=== PATIENT | male | born 1995 | race Caucasian/White ===

== ENCOUNTER 2016-09-10 19:28 | Emergency (ER) | payer BC, OTHER ==
[2016-09-10 20:04] VITALS: TEMP 97.2; O2SAT 100
--- NOTE | 2016-09-10 20:22 | ED.PDOC ---
History of Present Illness - General Chief Complaint: ENT Problem Stated Complaint: nose bleed past week Time Seen by Provider: 09/10/16 20:15 Source: patient, family Exam Limitations: no limitations Additional Information: DAILY NOSE BLEEDS PAST WEEK. HAD ONE TODAY BUT IT STOPPED AT HOME BY APPLYING PRESSURE. ALWAYS RIGHT SIDE. - History of Present Illness Severity: mild Worsening Factors: movement Associated Symptoms: denies symptoms Allergies/Adverse Reactions: Allergies NO KNOWN ALLERGY Allergy (Verified 09/10/16 20:03) Home Medications: Ambulatory Orders Cynterra 09/10/16 Divalproex Sodium [Depakote] 125 mg PO 09/10/16 Melatonin 5 mg PO 09/10/16 Volcan 09/10/16 Review of Systems - Review of Systems Constitutional: States: no symptoms reported EENTM: Denies: ear pain, throat pain, mouth pain Respiratory: States: no symptoms reported Cardiology: States: no symptoms reported Gastrointestinal/Abdominal: States: no symptoms reported Genitourinary: States: no symptoms reported Musculoskeletal: States: no symptoms reported Skin: States: no symptoms reported Neurological: States: no symptoms reported Endocrine: States: no symptoms reported Hematologic/Lymphatic: States: no symptoms reported All other Systems: Reviewed and Negative Past Medical History (General) - Patient Medical History Hx Seizures: Yes - Vaccination History Hx Influenza Vaccination: Yes Family Medical History - Family History Father Family History: Unknown Physical Exam - Physical Exam General Appearance: Comfortable, No apparent distress Eye Exam: bilateral normal Ear Exam: bilateral ear: TM normal Nasal Exam: other - BL KESSELBACH'S PLEXUS ALONG SEPTUM SHOW RED VENULES BUT NO ACTIVE HEMORRHAGE. Throat Exam: normal mouth inspection, pharynx normal Neck: non-tender, full range of motion Cardiovascular/Respiratory: regular rate, rhythm, no M/R/G Abdominal Exam: non-tender, no organomegaly Neurologic: supervisor lens generating II-XII nml as tested, alert Skin Exam: normal color Progress - Progress Progress: 09/10/16 21:10 NO ACTIVE EPISTAXIS THUS NO RHINO ROCKET NEEDED. NO SILVER NITRATE NEEDED. I APPLIED A LAYER OF VASELINE WITH QTIP. Departure - Departure Clinical Impression: Anterior epistaxis Disposition: Discharge to Home or Self Care Condition: Good Departure Forms: ED Discharge - Pt. Copy, Patient Portal Self Enrollment Instructions: What to Do When Your Child Has a Nosebleed Diet: resume usual diet Home Medications: Ambulatory Orders Cynterra 09/10/16 Divalproex Sodium [Depakote] 125 mg PO 09/10/16 Melatonin 5 mg PO 09/10/16 Volcan 09/10/16 Additional Instructions: Please apply a thin layer of vaseline petroleum jelly to the septum of the nose daily. Use a humidifier/vaporizer in his bedroom at night and during the day. Please follow-up with your regular doctor or return to the ER if these prevention measures don't work.
[2016-09-10 21:25] VITALS: BP 136/72
== END 2016-09-10 21:25 | disposition home or self-care (01) ==
LOC: ER 19:28
DX: R04.0 Epistaxis (principal); G40.909 Epilepsy, unspecified, not intractable, without status epilepticus; Z79.899 Other long term (current) drug therapy

== ENCOUNTER 2018-10-27 23:04 | Emergency (ER) | payer BC, OTHER ==
--- NOTE | 2018-10-27 23:39 | ED.PDOC ---
History of Present Illness - General Chief Complaint: Abdominal Pain Stated Complaint: fever, RLQ pain Time Seen by Provider: 10/27/18 23:29 Information Source: patient Exam Limitations: no limitations - History of Present Illness Initial Comments: Junior Jerome 23 y/o male stated he woke up tonight with sharp RLQ pain and fever.No n/v/d ,no hematuria or dysuria.Has history of seizure disorder on depakote,strattera,focalin. Abdominal Pain Onset Location: RLQ Pain Radiation: no radiation Quality: moderate, steady Timing/Duration: 4-6 hours Improving Factors: nothing Worsening Factors: nothing Associated Symptoms: denies symptoms, other - see hpi Review of Systems - Review of Systems Constitutional: States: see HPI, fever EENTM: States: no symptoms reported Respiratory: States: no symptoms reported Cardiology: States: no symptoms reported Gastrointestinal/Abdominal: States: see HPI Musculoskeletal: States: no symptoms reported Skin: States: no symptoms reported Neurological: States: seizure - chronic Endocrine: States: no symptoms reported Past Medical History (General) - Patient Medical History Hx Seizures: Yes Hx Diabetes: No Surgical History: no surgical history - Vaccination History Hx Influenza Vaccination: Yes - Triage Comment ED Triage Comment: RLQ abd pain with fever Family Medical History - Family History Father Family History: Unknown Hx Family;Other: ADOPTED Physical Exam - Physical Exam General Appearance: Alert, Comfortable, No apparent distress Eyes, Ears, Nose, Throat Exam: normal ENT inspection, TMs normal, pharynx normal Neck: supple, normal inspection Respiratory: lungs clear, normal breath sounds, no respiratory distress Cardiovascular/Chest: normal peripheral pulses, no murmur, tachycardia Peripheral Pulses: No deficit Gastrointestinal/Abdominal: soft, tenderness - RLQ no peritoneal signs Extremity: no pedal edema Neurologic: alert, oriented x 3 Skin Exam: normal color, warm/dry Progress - Progress Progress: 10/28/18 01:08 Vital Signs - 8 hr 10/27/18 10/28/18 23:27 00:04 Temperature 102.0 F H Pulse Rate [ 118 H 108 H Left] Respiratory 16 Rate Blood Pressure 118/63 114/68 [Right Arm] O2 Sat by Pulse 100 99 Oximetry 10/28/18 01:37 Dad requested Tamiflu for prophylaxis Rx written - Results/Orders Results/Orders: 10/27/18 23:41 URINALYSIS Stat 10/27/18 23:42 IV Care:Saline Lock per Protoc QSHIFT 10/27/18 23:45 STREP A SCREEN CULTURE Stat Laboratory Results - last 24 hr 10/27/18 10/27/18 10/27/18 23:41 23:41 23:41 WBC 8.5 RBC 5.57 Hgb 15.6 Hct 47.3 MCV 84.9 MCH 28.0 MCHC 33.0 RDW 14.2 Plt Count 197 MPV 8.3 Absolute Neuts (auto) 6.00 Absolute Lymphs (auto) 0.90 L Absolute Monos (auto) 1.50 H Absolute Eos (auto) 0.00 Absolute Basos (auto) 0.00 Neutrophils % 71.0 Lymphocytes % 10.6 L Monocytes % 18.0 H Eosinophils % 0.0 L Basophils % 0.4 Sodium 135 Potassium 3.6 Chloride 101 Carbon Dioxide 26 Anion Gap 11.6 L BUN 13 Creatinine 0.72 BUN/Creatinine Ratio 18.1 Random Glucose 103 Serum Osmolality 270.5 L Lactic Acid 1.1 Calcium 8.6 Total Bilirubin 0.5 AST 21 ALT 29 Alkaline Phosphatase 92 Serum Total Protein 8.3 H Albumin 4.0 Globulin 4.3 H Albumin/Globulin Ratio 0.9 L Valproic Acid 40.4 L Group A Strep Rapid 10/27/18 23:45 WBC RBC Hgb Hct MCV MCH MCHC RDW Plt Count MPV Absolute Neuts (auto) Absolute Lymphs (auto) Absolute Monos (auto) Absolute Eos (auto) Absolute Basos (auto) Neutrophils % Lymphocytes % Monocytes % Eosinophils % Basophils % Sodium Potassium Chloride Carbon Dioxide Anion Gap BUN Creatinine BUN/Creatinine Ratio Random Glucose Serum Osmolality Lactic Acid Calcium Total Bilirubin AST ALT Alkaline Phosphatase Serum Total Protein Albumin Globulin Albumin/Globulin Ratio Valproic Acid Group A Strep Rapid Negative 10/27/18 23:42 IV Care:Saline Lock per Protoc QSHIFT 10/27/18 23:45 STREP A SCREEN CULTURE Stat Laboratory Results - last 24 hr 10/27/18 10/27/18 10/27/18 23:41 23:41 23:41 WBC 8.5 RBC 5.57 Hgb 15.6 Hct 47.3 MCV 84.9 MCH 28.0 MCHC 33.0 RDW 14.2 Plt Count 197 MPV 8.3 Absolute Neuts (auto) 6.00 Absolute Lymphs (auto) 0.90 L Absolute Monos (auto) 1.50 H Absolute Eos (auto) 0.00 Absolute Basos (auto) 0.00 Neutrophils % 71.0 Lymphocytes % 10.6 L Monocytes % 18.0 H Eosinophils % 0.0 L Basophils % 0.4 Sodium 135 Potassium 3.6 Chloride 101 Carbon Dioxide 26 Anion Gap 11.6 L BUN 13 Creatinine 0.72 BUN/Creatinine Ratio 18.1 Random Glucose 103 Serum Osmolality 270.5 L Lactic Acid 1.1 Calcium 8.6 Total Bilirubin 0.5 AST 21 ALT 29 Alkaline Phosphatase 92 Serum Total Protein 8.3 H Albumin 4.0 Globulin 4.3 H Albumin/Globulin Ratio 0.9 L Urine Color Urine Appearance Urine pH Ur Specific [place] Urine Protein Urine Glucose (UA) Urine Ketones Urine Blood Urine Nitrite Urine Bilirubin Urine Urobilinogen Ur Leukocyte Esterase Urine RBC Urine WBC Ur Epithelial Cells Urine Bacteria Urine Mucus Valproic Acid 40.4 L Group A Strep Rapid 10/27/18 10/28/18 23:45 01:09 WBC RBC Hgb Hct MCV MCH MCHC RDW Plt Count MPV Absolute Neuts (auto) Absolute Lymphs (auto) Absolute Monos (auto) Absolute Eos (auto) Absolute Basos (auto) Neutrophils % Lymphocytes % Monocytes % Eosinophils % Basophils % Sodium Potassium Chloride Carbon Dioxide Anion Gap BUN Creatinine BUN/Creatinine Ratio Random Glucose Serum Osmolality Lactic Acid Calcium Total Bilirubin AST ALT Alkaline Phosphatase Serum Total Protein Albumin Globulin Albumin/Globulin Ratio Urine Color Yellow Urine Appearance Clear Urine pH 6.5 Ur Specific [place] 1.025 Urine Protein 30 Urine Glucose (UA) Negative Urine Ketones 15 H Urine Blood Negative Urine Nitrite Negative Urine Bilirubin Negative Urine Urobilinogen 1.0 Ur Leukocyte Esterase Negative Urine RBC 0-1 Urine WBC 1-3 Ur Epithelial Cells 0 Urine Bacteria 0 Urine Mucus Moderate Valproic Acid Group A Strep Rapid Negative Discuss all test result with patient dad - EKG/XRAY/CT CT Ordered: Yes - abd/P-no acute intraabdominal abnormalties Departure - Departure Clinical Impression: Influenza A Abdominal pain Qualifiers: Abdominal location: right lower quadrant Qualified Code(s): R10.31 - Right lower quadrant pain Time of Disposition: :28 Disposition: Discharge to Home or Self Care Condition: Fair Departure Forms: ED Discharge - Pt. Copy, Patient Portal Self Enrollment Instructions: Flu, Adult (DC) Referrals: Po Wu MD [Primary Care Provider] - 1-2 Weeks Prescriptions: Oseltamivir Capsule [Tamiflu] 75 mg PO BID 5 Days #10 capsule Home Medications: Ambulatory Orders Cynterra 09/10/16 Divalproex Sodium [Depakote] 125 mg PO 09/10/16 Melatonin 5 mg PO 09/10/16 Volcan 09/10/16 Oseltamivir Capsule [Tamiflu] 75 mg PO BID 5 Days #10 capsule 10/28/18 Additional Instructions: Continue with all home medications;May take [id number] tablets by mouth every 6 hours for pain /fever
[2018-10-27] MEDS ORDERED: LACTATED RINGERS 1,000 ML IVS ONE (23:43)
--- NOTE | 2018-10-28 01:04 | CT ---
CT ABDOMEN PELVIS WITHOUT IV CONTRAST Exam date: 10/28/2018 12:25 AM CDT Comparison: CT abdomen pelvis January 16, 2012 Indication: Abdominal pain Technique: Multiple helical axial images were obtained through the abdomen and pelvis without intravenous contrast. Sagittal and coronal reformatted images are reviewed as well. All CT scans at this facility use dose modulation, iterative reconstruction, and/or weight-based dosing when appropriate to reduce radiation dose to as low as reasonably achievable. Findings: Lung bases: Unremarkable. Liver: Homogenous attenuation is demonstrated. Gallbladder/biliary: Gallbladder appears unremarkable. No calcified gallstones. No evidence of biliary ductal dilatation. Pancreas: Unremarkable. Spleen: Unremarkable. Adrenals: Unremarkable. Kidneys and ureters: No evidence of renal or ureteral stones. No hydronephrosis. Bladder: Unremarkable. Pelvic organs: Unremarkable. Bowel: No evidence of bowel obstruction. No bowel wall thickening. Appendix appears unremarkable. Peritoneum: No free air. No significant free fluid. Lymph nodes: Unremarkable. Vasculature: Unremarkable. Soft tissues: Unremarkable. Bones: There is mild dextrocurvature of the midthoracic spine. Impression: No evidence for an acute process within the abdomen or pelvis. Electronically signed by: Mathew Lam MD 10/28/2018 1:01 AM CDT
[2018-10-28] MEDS ORDERED: OSELTAMIVIR 75 MG CAP PO ONE (01:09)
[2018-10-28 01:14] VITALS: O2SAT 99
[2018-10-28] MEDS ORDERED: ACETAMINOPHEN 325 MG TAB PO ONE (01:30)
[2018-10-28 02:32] VITALS: BP 125/73; TEMP 101.2
== END 2018-10-28 02:33 | disposition home or self-care (01) ==
LOC: ER 23:04
DX: J10.1 Influenza due to other identified influenza virus with other respiratory manifestations (principal); R10.31 Right lower quadrant pain; G40.909 Epilepsy, unspecified, not intractable, without status epilepticus; Z79.899 Other long term (current) drug therapy
CPT/HCPCS: 36415; 74176; 80053; 80164; 81001; 83605; 85025; 87070; 87502; 87880; J7120

== ENCOUNTER 2019-06-07 17:42 | Inpatient (IN) | payer BC, OTHER ==
[2019-06-07] MEDS ORDERED: ONDANSETRON INJ 4 MG/2 ML VIAL IV ONE (17:58)
[2019-06-07] MEDS ORDERED: KETOROLAC TROMETHAMINE INJ 30 MG/ML VIAL IV ONE (17:58)
[2019-06-07] MEDS ORDERED: SODIUM CHLORIDE 0.9% 1000ML 1,000 ML IVS ONE ×2 (17:58→19:18)
[2019-06-07] MEDS ORDERED: ACETAMINOPHEN 500 MG TAB PO ONE (17:58)
--- NOTE | 2019-06-07 18:09 | ED.PDOC ---
History of Present Illness - General Chief Complaint: Abdominal Pain Stated Complaint: L sided abd pain, N/V Time Seen by Provider: 06/07/19 17:45 - History of Present Illness Initial Comments: Pt is a 24 y.o. M w/ pmh of seizures who presents from home c/o LLQ pain. Mom reports that his symptoms began last night. Pain is sharp in nature and radiates to his L flank. It has been constant and worsening since last night. Associated with nausea and vomiting as well as fevers and chills. He has never had this pain before. denies h/o renal stones or diverticulitis. No diarrhea or sick contacts. Review of Systems - Review of Systems Constitutional: States: chills, fever, malaise EENTM: States: no symptoms reported Respiratory: States: no symptoms reported Cardiology: States: no symptoms reported Gastrointestinal/Abdominal: States: abdominal pain, vomiting Genitourinary: Denies: dysuria Musculoskeletal: States: no symptoms reported Skin: States: no symptoms reported Neurological: States: no symptoms reported Endocrine: States: no symptoms reported Hematologic/Lymphatic: States: no symptoms reported All other Systems: Reviewed and Negative Past Medical History (General) - Patient Medical History Hx Seizures: Yes Hx Stroke: No Hx of COPD: No Hx Cardiac Disorders: No Hx Hypertension: No Hx Diabetes: No Hx Cancer: No Surgical History: no surgical history - Vaccination History Hx Tetanus, Diphtheria Vaccination: Yes Hx Influenza Vaccination: No Hx Pneumococcal Vaccination: No Immunizations Up to Date: Yes - Social History Hx Tobacco Use: No Hx Alcohol Use: No Hx Substance Use: No Hx Substance Use Treatment: No Hx Depression: No - Female History Patient is a Female of Child Bearing Age (10 -59 yrs old): No Patient : No Family Medical History - Family History Father Family History: Unknown Hx Family;Other: ADOPTED Physical Exam - Physical Exam General Appearance: Alert, Ill Appearing Eyes, Ears, Nose, Throat Exam: PERRL/EOMI, normal ENT inspection Neck: full range of motion, supple Respiratory: lungs clear, normal breath sounds Cardiovascular/Chest: no edema, tachycardia Peripheral Pulses: No deficit Gastrointestinal/Abdominal: other - LLQ tenderness and guarding Male Genitalia: normal genitalia, other - circumsized Back Exam: normal inspection, no CVA tenderness Extremity: normal range of motion, non-tender Neurologic: no motor/sensory deficits, alert, normal mood/affect Skin Exam: normal color, warm/dry Progress - Progress Progress: 06/07/19 18:12 MDM Pt w/ h/o seizures and slight intellectual disability presenting with LLQ pain and fever. Septic appearing with tachycardia/borderline BP. Plan: labs, CT, treat symptoms, reassess. Diff dx: sepsis, diverticulitis, renal stone 06/07/19 20:37 Labs with notable leukocytosis and bandemia. CT a/p w/o any acute findings. Unclear etiology of patient's symptoms. UA still pending. Will admit for sepsis and treat with antibiotics. 06/07/19 20:42 Spoke with Raquel Valencia, hospitalist, who accepts patient for admission. - EKG/XRAY/CT CT Ordered: Yes - No acute findings on CT a/p Departure - Departure Clinical Impression: Left lower quadrant pain Sepsis Qualifiers: Sepsis type: sepsis due to unspecified organism Sepsis acute organ dysfunction status: without acute organ dysfunction Qualified Code(s): A41.9 - Sepsis, unspecified organism Disposition: Admit Patient Condition: Good Departure Forms: ED Discharge - Pt. Copy, Patient Portal Self Enrollment Instructions: DI for Abdominal Pain-Adult Referrals: Po Wu MD [Primary Care Provider] - 1-2 Weeks Home Medications: Ambulatory Orders Mihcaela 09/10/16 Divalproex Sodium [Depakote] 125 mg PO 09/10/16 Melatonin 5 mg PO 09/10/16 Volcan 09/10/16 Oseltamivir Capsule [Tamiflu] 75 mg PO BID 5 Days #10 capsule 10/28/18
[2019-06-07] MEDS ORDERED: MORPHINE SULFATE INJ 10 MG/ML VIAL IV ONE (18:44)
--- NOTE | 2019-06-07 19:36 | CT ---
CT ABDOMEN PELVIS WITH IV CONTRAST Exam date: June 07, 2019 Comparison: CT abdomen pelvis October 28, 2018 Indication: Left lower quadrant pain Technique: Multiple helical axial images were obtained through the abdomen and pelvis using intravenous contrast. Coronal and sagittal reformatted images were obtained. All CT scans at this facility use dose modulation, iterative reconstruction, and/or weight-based dosing when appropriate to reduce radiation dose to as low as reasonably achievable. Findings: Lung bases: [Appear unremarkable]. Liver: [Homogenous attenuation is noted.] Gallbladder/biliary: [Appears unremarkable] Pancreas: [Unremarkable. No evidence of ductal enlargement.] Spleen: Appears unremarkable. No splenomegaly. Adrenals: Unremarkable. Kidneys and ureters: [No evidence of hydronephrosis. Normal enhancement.] Bladder: Unremarkable. Pelvic organs: Unremarkable. Bowel: [No evidence of bowel obstruction. No bowel wall thickening.] Appendix appears unremarkable. Vasculature: Unremarkable. Peritoneum: No free air. No significant free fluid. Lymph nodes: Unremarkable. Soft tissues: Unremarkable. Bones: Mild thoracolumbar scoliosis is noted. Impression: No evidence for an acute process within the abdomen or pelvis. Electronically signed by: Mathew Lam MD 06/07/2019 7:34 PM CDT
[2019-06-07] MEDS ORDERED: cefTRIAXone SODIUM 2 GM in SODIUM CHL 0.9% 100ML MINI-BAG 100 ML IVPB ONE (19:48)
[2019-06-07] MEDS ORDERED: metroNIDAZOLE IV PREMIX 500MG 500 MG in PREMIX BAG 1 BAG IVPB ONE (19:48)
[2019-06-07] MEDS ORDERED: metroNIDAZOLE IV PREMIX 500MG 100 ML IVPB ONE (19:52)
--- NOTE | 2019-06-07 20:35 | RAD ---
EXAM: Chest,1 View CLINICAL INDICATION: Cough COMPARISON: There is no previous study for comparison. FINDINGS: A single view of the chest was obtained. The heart size is normal. The pulmonary vascularity is unremarkable. The lungs are clear. There is no consolidation, infiltrate, pleural effusion, or pneumothorax. IMPRESSION: No evidence of active pulmonary disease. Electronically signed by: Sammy Oneill MD 06/07/2019 8:34 PM CDT
--- NOTE | 2019-06-07 21:17 | HP ---
SUPERVISING PHYSICIAN: Killian Gordon MD CHIEF COMPLAINT: Left lower quadrant abdominal pain. HISTORY OF PRESENT ILLNESS: This is a 24 year-old male patient who has a past medical history of seizures, lives at home, who complains of left lower quadrant abdominal pain. It had been going on since Sunday night. The pain was sharp in nature, it radiates to his flank. He has also had fever and chills. He came to the Emergency Room and his initial vital signs were a temperature of 101.6 with a heart rate of 128, blood pressure 101/81, respiratory rate 20, oxygen saturation 96% on room air. Laboratory was completed and showed a white count of 25,000 with a stable hemoglobin of 15.3 and hematocrit of 46.1. He had a left shift on his differential and had 16 bands. Electrolytes were basically within normal limits with the exception of his chloride which slightly low at 97. Total bilirubin was 1.2, serum osmolality 272.7, lactic acid 1.1. Urinalysis was unremarkable with the exception of 40 urine ketones and a small amount of urine bilirubin. Blood cultures were obtained. Chest x-ray was done and showed no acute cardiopulmonary processes. CT of the abdomen and pelvis showed no evidence for an acute process within the abdomen or pelvis. He was given fluids and started on Rocephin and Flagyl and I was called for hospital admission. PAST MEDICAL HISTORY: 1. Seizures. 2. 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 3. Mild intellectual disability. PAST SURGICAL HISTORY: None. CURRENT MEDICATIONS: 1. Strattera. 2. Focalin. 3. Depakote. 4. Melatonin. ALLERGIES: No known drug allergies. FAMILY HISTORY: Unknown, he is adopted. SOCIAL HISTORY: He lives in [place] with his parents. There is no history of ETOH, tobacco or illicit drug use. REVIEW OF SYSTEMS: GENERAL: Positive for chills, fever and malaise, negative for weight changes. HEENT: Negative for sinus symptoms, ear pain, vision changes, sore throat. RESPIRATORY: Negative for coughing, wheezing, shortness of breath CARDIAC: Negative for chest pain, palpitations, tachycardia. GI: Positive for left lower quadrant abdominal pain as well as nausea and vomiting. No diarrhea or constipation. GENITOURINARY: Negative for hematuria, dysuria, polyuria. MUSCULOSKELETAL: Positive for general aches and pains.. SKIN: Negative for lesions or rashes. NEUROLOGICAL: Negative for headaches, and recent seizures or dizziness. PHYSICAL EXAMINATION: VITAL SIGNS: Temperature 98.9, heart rate 106, blood pressure 114/78, respiratory rate 20, oxygen saturation 97% on room air. GENERAL: This is a 24 year-old male patient who is rather ill-appearing. HEENT: Normocephalic and atraumatic. Pupils are equal and reactive. Oropharynx is clear. NECK: Supple without mass. CHEST: Essentially clear to auscultation bilaterally. There is equal rise and fall of the chest with inspiration and expiration. CARDIOVASCULAR: Regular rate and rhythm. At times, he is tachycardic. ABDOMEN: EXTREMITIES: No cyanosis, clubbing, or edema. NEUROLOGIC: He is awake and alert and is feverish and slightly diaphoretic. Labs and films are as per history of present illness. ASSESSMENT: 1. Systemic inflammatory response system of unknown source of infection. On admission heart rate was 128, temperature 101.8, WBCs 25,000 and bands of 16%. 2. Left lower quadrant abdominal pain with nausea and vomiting and no acute findings on CT. 3. History of seizure disorder on antiseizure medication. 4. 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 5. Mild intellectual disability. PLAN: We will admit the patient to the hospital for SIRS of unknown etiology. I will continue IV fluids as well as his Rocephin and Flagyl. I will also add vancomycin per pharmacy. He will have a PPI for ulcer prophylaxis and Lovenox for DVT prophylaxis. His home medications have been reordered. I will check his Depakote level, Sunday he will need a sonogram of his abdomen. We will monitor his cultures closely and we will continue to monitor him closely and follow as needed. #[id number] [facility]
[2019-06-07] MEDS ORDERED: VANCOMYCIN HCL INJ 1,000 MG, VANCOMYCIN HCL INJ 250 MG in SODIUM CHLORIDE 0.9% 250ML 25... IVPB ONE (22:14)
[2019-06-07] MEDS ORDERED: VANCOMYCIN HCL INJ 1,000 MG VIAL IVPB ONE (22:18)
[2019-06-07] MEDS ORDERED: SODIUM CHLORIDE 0.9% 250ML 250 ML ONE (22:18)
[2019-06-07] MEDS ORDERED: VANCOMYCIN HCL INJ 500 MG VIAL ONE (22:18)
[2019-06-07] MEDS ORDERED: SODIUM CHLORIDE 0.9% (FLUSH) 10 ML SYG IV PRN (22:20)
[2019-06-07] MEDS ORDERED: ONDANSETRON INJ 4 MG/2 ML VIAL IV PRN (22:20)
[2019-06-07] MEDS: IV SET AND CAP CHANGE INJ INJ SCH (22:45)
[2019-06-07] MEDS ORDERED: DIVALPROEX SODIUM DR 250 MG TAB ONE (23:33)
[2019-06-08] MEDS: KCL 20 MEQ/NS 1,000 ML IVS PRN ×2 (00:09→09:59)
[2019-06-08] MEDS: ACETAMINOPHEN 325 MG TAB PO PRN ×3 (03:21→20:46)
[2019-06-08] MEDS ORDERED: SODIUM CHLORIDE 0.9% 50ML 50 ML ONE ×2 (04:28→20:37)
[2019-06-08] MEDS ORDERED: PROMETHAZINE HCL INJ 25 MG/ML VIAL ONE ×2 (04:28→20:37)
[2019-06-08] MEDS: PROMETHAZINE HCL INJ 25 MG in SODIUM CHLORIDE 0.9% 50ML 50 ML IVPB PRN ×2 (04:32→20:45)
[2019-06-08] MEDS ORDERED: metroNIDAZOLE IV PREMIX 500MG 100 ML IVPB ONE ×3 (06:11→20:12)
[2019-06-08] MEDS: metroNIDAZOLE IV PREMIX 500MG 500 MG in PREMIX BAG 1 BAG IVPB SCH ×3 (06:21→21:42)
[2019-06-08] MEDS: PANTOPRAZOLE SODIUM IV 40 MG VIAL IV SCH (06:22)
[2019-06-08] MEDS ORDERED: VANCOMYCIN PER PHARMACY IVPB SCH (08:00)
--- NOTE | 2019-06-08 08:26 | RAD ---
EXAM DESCRIPTION: Chest x-ray two views: CLINICAL HISTORY: sepsis COMPARISON: June 07, 2019 TECHNIQUE: PA and lateral views of the chest were obtained. FINDINGS: The heart is normal in size . The hilar and mediastinal structures are within normal limits. The pulmonary vascularity is normal . The lung smith are free of any active pulmonary parenchymal or pleural disease. The bony structures significant scoliosis of the thoracolumbar spine is noted.. IMPRESSION: No active disease. Electronically signed by: Purvi Vela MD 06/08/2019 8:25 AM CDT
[2019-06-08] MEDS ORDERED: SODIUM CHLORIDE 0.9% (FLUSH) 10 ML SYG IV SCH (09:00)
[2019-06-08] MEDS ORDERED: DEXMETHYLPHENIDATE HCL 10 MG PO SCH (09:00)
[2019-06-08] MEDS ORDERED: SODIUM CHL 0.9% 50ML MIN-BAG+ 50 ML IVPB ONE (09:56)
[2019-06-08] MEDS ORDERED: cefTRIAXone SODIUM 1 GM VIAL ONE (09:57)
[2019-06-08] MEDS: cefTRIAXone SODIUM 1 GM in SODIUM CHL 0.9% 50ML MIN-BAG+ 50 ML IVPB SCH (09:58)
[2019-06-08] MEDS ORDERED: SODIUM CHLORIDE 0.9% 250ML 250 ML ONE ×3 (10:46→20:11)
[2019-06-08] MEDS ORDERED: VANCOMYCIN HCL INJ 1,000 MG VIAL IVPB ONE ×3 (10:46→20:13)
[2019-06-08] MEDS ORDERED: VANCOMYCIN HCL INJ 500 MG VIAL ONE ×3 (10:46→20:11)
[2019-06-08] MEDS: VANCOMYCIN HCL INJ 1,000 MG, VANCOMYCIN HCL INJ 500 MG in SODIUM CHLORIDE 0.9% 250ML 25... IVPB SCH ×2 (10:51→17:14)
[2019-06-08] MEDS ORDERED: MAGNESIUM SULFATE PREMIX 2GM 2 GM in PREMIX BAG 1 BAG IVPB ONE (10:51)
[2019-06-08] MEDS ORDERED: MAGNESIUM SULFATE PREMIX 2GM 50 ML IVPB ONE (11:15)
[2019-06-08] MEDS ORDERED: MORPHINE SULFATE INJ 10 MG/ML VIAL IV PRN (11:37)
[2019-06-08] MEDS: (Atomoxetine Hcl [Strattera] 60 MG) PO SCH (17:57)
[2019-06-08] MEDS: MELATONIN 3 MG TAB PO PRN (20:45)
[2019-06-08] MEDS: ENOXAPARIN SODIUM 40 MG/0.4 ML SYG SUBCU SCH (20:45)
[2019-06-09] MEDS: KCL 20 MEQ/NS 1,000 ML IVS PRN ×2 (00:49→16:50)
[2019-06-09] MEDS: VANCOMYCIN HCL INJ 1,000 MG, VANCOMYCIN HCL INJ 500 MG in SODIUM CHLORIDE 0.9% 250ML 25... IVPB SCH ×3 (01:29→17:46)
[2019-06-09] MEDS: PANTOPRAZOLE SODIUM IV 40 MG VIAL IV SCH (05:53)
[2019-06-09] MEDS ORDERED: metroNIDAZOLE IV PREMIX 500MG 100 ML IVPB ONE ×3 (06:18→19:34)
[2019-06-09] MEDS: metroNIDAZOLE IV PREMIX 500MG 500 MG in PREMIX BAG 1 BAG IVPB SCH ×3 (06:20→21:24)
[2019-06-09] MEDS ORDERED: VANCOMYCIN HCL INJ 500 MG VIAL ONE ×3 (07:24→19:35)
--- NOTE | 2019-06-09 07:24 | RAD ---
EXAM DESCRIPTION: Abdomen Flat Upright CLINICAL HISTORY: 24 years Male, LLQ abd pain COMPARISON: CT June 07, 2019 FINDINGS: No free subdiaphragmatic gas or intra-abdominal air-fluid level. The bowel gas pattern is nonobstructive with a small to moderate amount of stool and gas scattered throughout the colon. No suspicious intra-abdominal calcification or mass. No concerning bone lesion. IMPRESSION: Small to moderate amount of colonic stool and gas, otherwise unremarkable exam. Electronically signed by: Shahzad Kingsley MD 06/09/2019 7:22 AM CDT
[2019-06-09] MEDS ORDERED: SODIUM CHLORIDE 0.9% 250ML 250 ML ONE ×3 (07:25→19:35)
[2019-06-09] MEDS ORDERED: VANCOMYCIN HCL INJ 1,000 MG VIAL IVPB ONE ×3 (07:25→19:35)
[2019-06-09] MEDS ORDERED: cefTRIAXone SODIUM 1 GM VIAL ONE (07:25)
[2019-06-09] MEDS ORDERED: SODIUM CHL 0.9% 50ML MIN-BAG+ 50 ML IVPB ONE (07:25)
--- NOTE | 2019-06-09 08:21 | PN ---
SUPERVISING PHYSICIAN: Killian Gordon MD DATE: 06/08/19 SUBJECTIVE: The patient is sitting up in the bed. His mother is at the bedside. He continues to have problems with sweating and feeling a fever, but his abdomen is not as painful as it has been. He did vomit one time last night, but has not had any nausea or vomiting in the last 2 to 3 hours. He denies shortness of breath, chest pain, diarrhea or constipation. OBJECTIVE: VITAL SIGNS: Temperature 98.9. Heart rate 77. Blood pressure 116/75. Respiratory rate 19. O2 saturation 96% on room air. RESPIRATORY: Essentially clear to auscultation bilaterally. CARDIAC: Regular rate and rhythm. GASTROINTESTINAL: Abdomen is soft. It is slightly firm. He does have some tenderness to the left upper and left lower quadrant. There is no rebound tenderness. There is mild guarding. NEUROLOGIC: He is awake and alert. LABORATORY: WBCs have improved to 22,100 with a hemoglobin of 12.9, hematocrit 39.4. He does have a left shift on differential. His bands worsened at 23. Electrolytes are basically within normal limits with the exception of magnesium is low at 1.6 and calcium low at 8.3. His liver enzymes are within normal limits. Blood cultures showed no growth after 24 hours. His influenza A and B per PCR are both negative. His chest x-ray showed no active disease. All other labs and films have been reviewed via the EMR. ASSESSMENT: 1. Systemic inflammatory response system of unknown source of infection. On admission heart rate was 128, temperature 101.8, WBCs 25,000 and bands of 16%. WBCs have improved and bandemia is slightly worsened. 2. Left lower quadrant abdominal pain with nausea and vomiting and no acute findings on CT. 3. History of seizure disorder on antiseizure medication. 4. 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 5. Mild intellectual disability. PLAN: We will continue present supportive care. I have ordered an abdominal sonogram for in the morning. I am still not quite sure of the etiology of his infection. We will continue to monitor his cultures as they become available. I have ordered lab for in the morning as well as given him some morphine for pain. Depakote level was ordered for in the morning. His home medications have been restarted. We will continue to monitor the patient closely and follow as needed. [facility][id number] [facility]
[2019-06-09] MEDS: (Atomoxetine Hcl [Strattera] 60 MG) PO SCH (08:42)
[2019-06-09] MEDS: DEXMETHYLPHENIDATE HCL 25 MG PO SCH (08:42)
[2019-06-09] MEDS: cefTRIAXone SODIUM 1 GM in SODIUM CHL 0.9% 50ML MIN-BAG+ 50 ML IVPB SCH (08:43)
--- NOTE | 2019-06-09 14:11 | US ---
EXAM DESCRIPTION: Abdomen,Complete: Ultrasound. CLINICAL HISTORY: LLQ abd pain COMPARISON: None Available. TECHNIQUE: Transabdominal scanning: grayscale and Doppler modes. FINDINGS: Gallbladder: Normal size and echogenicity with no intraluminal stones or sludge. Wall normal thickness 1.8 mm with no fluid. Nontender with transducer pressure. Common bile duct: 4.8 mm normal caliber Liver: 12.4 cm long axis of the right lobe. Normal echogenicity and no focal lesions. Physiologic vascularity and normal caliber of the ducts. Smooth capsule with no ascites. Pancreas: Normal echogenicity of the included segments with duct not seen.. Abdominal aorta: Normal caliber from the proximal segment to the distal bifurcation. IVC: visualized; normal caliber. Spleen normal echogenicity; long axis measurement is 8.5 cm. Right kidney: 11.7 cm long axis with normal cortical thickness and echogenicity. No echogenic stones or hydronephrosis. Left kidney: 11 cm long axis with normal cortical thickness and echogenicity. No echogenic stones or hydronephrosis. Tenderness while scanning over the left kidney.. IMPRESSION: 1. Left flank pain and tenderness while scanning over the left kidney but no morphologic abnormalities. Right kidney is also unremarkable. 2. Liver, gallbladder, common bile duct, pancreas, and spleen are negative. Normal caliber of the IVC and abdominal aorta. No ascites. Electronically signed by: Kvng Hills MD 06/09/2019 2:10 PM CDT
--- NOTE | 2019-06-09 14:16 | PN ---
SUPERVISING PHYSICIAN: Ashli Burgess MD DATE: 06/09/19 SUBJECTIVE: The patient notes that his pain in his left lower quadrant is significantly decreased from yesterday. He has had no recurrence of any nausea. He notes he is feeling a little bit better. He has no further complaints. OBJECTIVE: VITAL SIGNS: He remains afebrile with T-max of 98.9. Pulse 90. Blood pressure 107/74. Respirations 16. Saturation 96% on room air. GENERAL: The patient is resting comfortably, appears to be in no acute distress. CHEST: Clear to auscultation. HEART: Regular rate and rhythm. ABDOMEN: Soft with some mild tenderness to palpation on the left lower quadrant. No rebound tenderness, no peritoneal signs. No point tenderness. EXTREMITIES: No edema. NEUROLOGIC: Alert and oriented times three. LABORATORY: White count down to 16,000. Hemoglobin and hematocrit stable at 12.7 and 38.3. Platelet count 182,000. Differential now is without any bands, but continued left shift. Chemistries show stable electrolytes with BUN 6, creatinine 0.56. Liver functions show just slightly elevated AST 61, otherwise within normal limits. RADIOLOGY: Abdominal x-ray this morning per radiologic interpretation showed small to moderate amount of colonic stool and gas, otherwise unremarkable exam. Ultrasound of his abdomen and pelvis is pending. ASSESSMENT: 1. Systemic inflammatory response system of unknown source of infection. On admission heart rate was 128, temperature 101.8, WBCs 25,000 and bands of 16%. WBCs have improved and bandemia is slightly worsened. 2. Left lower quadrant abdominal pain with nausea and vomiting and no acute findings on CT with abdominal ultrasound pending. 3. History of seizure disorder on antiseizure medication. 4. 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 5. Mild intellectual disability. PLAN: We will continue with current plan of care at this point with vancomycin, Rocephin and Flagyl and is showing improvement as white count is returning to baseline levels. We still do not have a true source of infectious etiology although it seems like is more of a colonic colitis versus diverticulitis, awaiting ultrasound to further rule out any other complicating findings. We will continue with pain management as needed. We will advance his diet as tolerated. We will await the ultrasound findings. We will follow labs as needed. Until the patient can transition to outpatient management, we will continue to monitor and treat as needed. #[id number] [facility]
[2019-06-09] MEDS: BIFIDOBACTERIUM INFANTIS 4 MG CAP PO SCH (15:30)
[2019-06-09] MEDS: ENOXAPARIN SODIUM 40 MG/0.4 ML SYG SUBCU SCH (21:24)
[2019-06-09] MEDS: MELATONIN 3 MG TAB PO PRN (21:43)
[2019-06-10] MEDS ORDERED: metroNIDAZOLE IV PREMIX 500MG 0 ML IVPB ONE (00:34)
[2019-06-10] MEDS: VANCOMYCIN HCL INJ 1,000 MG, VANCOMYCIN HCL INJ 500 MG in SODIUM CHLORIDE 0.9% 250ML 25... IVPB SCH ×2 (02:00→11:23)
[2019-06-10] MEDS: metroNIDAZOLE IV PREMIX 500MG 500 MG in PREMIX BAG 1 BAG IVPB SCH (05:56)
[2019-06-10] MEDS: KCL 20 MEQ/NS 1,000 ML IVS PRN (05:56)
[2019-06-10] MEDS: PANTOPRAZOLE SODIUM IV 40 MG VIAL IV SCH (05:57)
[2019-06-10] MEDS: ACETAMINOPHEN 325 MG TAB PO PRN (07:17)
[2019-06-10] MEDS ORDERED: VANCOMYCIN HCL INJ 500 MG VIAL ONE (09:18)
[2019-06-10] MEDS ORDERED: metroNIDAZOLE IV PREMIX 500MG 100 ML IVPB ONE (09:19)
[2019-06-10] MEDS ORDERED: SODIUM CHL 0.9% 50ML MIN-BAG+ 50 ML IVPB ONE (09:19)
[2019-06-10] MEDS ORDERED: cefTRIAXone SODIUM 1 GM VIAL ONE (09:19)
[2019-06-10] MEDS ORDERED: SODIUM CHLORIDE 0.9% 250ML 250 ML ONE (09:19)
[2019-06-10] MEDS ORDERED: VANCOMYCIN HCL INJ 1,000 MG VIAL IVPB ONE (09:20)
[2019-06-10] MEDS: BIFIDOBACTERIUM INFANTIS 4 MG CAP PO SCH (09:26)
[2019-06-10] MEDS: DEXMETHYLPHENIDATE HCL 25 MG PO SCH (09:31)
[2019-06-10] MEDS: (Atomoxetine Hcl [Strattera] 60 MG) PO SCH (09:43)
[2019-06-10] MEDS: cefTRIAXone SODIUM 1 GM in SODIUM CHL 0.9% 50ML MIN-BAG+ 50 ML IVPB SCH (09:45)
[2019-06-10] MEDS ORDERED: VANCOMYCIN HCL INJ 1,750 MG in SODIUM CHLORIDE 0.9% 500ML 500 ML IVPB SCH (10:00)
--- NOTE | 2019-06-10 10:36 | CT ---
EXAM DESCRIPTION: Chest w/o Contrast CLINICAL HISTORY: FUO with Thoracic back pain COMPARISON: None available TECHNIQUE: Chest CT was performed without IV contrast. This exam was performed according to our departmental dose-optimization program, which includes automated exposure control, adjustment of the mA and/or kV according to patient size and/or use of iterative reconstruction technique. FINDINGS: The thyroid is partially visualized but otherwise unremarkable. No thoracic aortic aneurysm. The main pulmonary artery is not dilated. Limited sensitivity for detection of adenopathy due to lack of IV contrast, but no mediastinal or hilar adenopathy is seen. No pleural or pericardial effusion. The central airways are clear. There is some patchy consolidation involving portions of the right upper and middle lobes with somewhat nodular configuration, nonspecific. No additional airspace consolidation. Visualized portions of the upper abdomen are unremarkable for noncontrast technique. Moderate dextroscoliosis of the thoracic spine. Decreased AP diameter of the chest resulting in mild cardiac compression, developmental but without pectus abnormality. IMPRESSION: Patchy somewhat nodular configuration involving small portions of the right upper and middle lobe concerning for developing pneumonia. Follow-up chest CT after treatment is recommended to document complete resolution. Scoliosis with developmentally decreased AP diameter of the chest as detailed above. Electronically signed by: Shahzad Kingsley MD 06/10/2019 10:35 AM CDT
[2019-06-10] MEDS ORDERED: AZITHROMYCIN IV 500 MG VIAL IVPB ONE (11:38)
[2019-06-10] MEDS: AZITHROMYCIN IV 500 MG in SODIUM CHLORIDE 0.9% 250ML 250 ML IVPB SCH (11:42)
[2019-06-10] MEDS: SODIUM CHLORIDE 0.9% (FLUSH) 10 ML SYG IV SCH ×2 (14:30→20:20)
[2019-06-10] MEDS ORDERED: SODIUM CHLORIDE 0.9% (FLUSH) 10 ML SYG IV ONE (14:30)
--- NOTE | 2019-06-10 14:54 | PN ---
SUPERVISING PHYSICIAN: Ashli Burgess MD DATE: 06/10/19 SUBJECTIVE: The patient is still running just a little low grade fever. He says his back still hurts him. He has had some night sweats. He has had no recurrence of any nausea. He says his abdominal pains are gone. OBJECTIVE: VITAL SIGNS: T-max 99.8. Pulse 105. Blood pressure 109/61. Respirations 20. Oximetry 97% on room air. I&Os show positive balance. CHEST: Lung sounds diminished towards the bases. No obvious rhonchi noted. HEART: Regular rate and rhythm. ABDOMEN: Soft, nontender. Positive bowel sounds. EXTREMITIES: No edema. NEUROLOGIC: Alert and oriented times three. LABORATORY: White count down to 15,200. Hemoglobin and hematocrit stable at 12.4 and 37.7. Differential shows resolving left shift. He does have elevated sedrate at 74. RADIOLOGY: CT of his chest this morning per radiologic interpretation without contrast showed patchy, somewhat nodular configuration involving portions involving right upper and middle lobes concerning for developing pneumonia. Scoliosis with developmental decreased AP diameter of the chest. Please see that report for details. ASSESSMENT: 1. Right upper lobe pneumonia, community acquired. 2. Sepsis secondary to #1, improving with treatment. 3. Left lower quadrant abdominal pain, resolved, uncertain etiology with no acute findings on CT or abdominal ultrasound. 4. History of seizure disorder on antiseizure medication including Depakote, possibly contributing to #2. 5. 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 6. Mild intellectual disability. PLAN: Given the findings of right upper lobe pneumonia, we are going to change antibiotic therapy to include Rocephin and azithromycin with stopping of the vancomycin and Flagyl. White count is showing improvement. He is having adequate oral intake as well as tolerating a regular diet. We will saline lock him today. I anticipate if he continues to show improvement and remains afebrile overnight that he will be able to discharge tomorrow to continue with outpatient management. Until then, we will continue to monitor and treat as needed. #[id number] [facility]
[2019-06-10] MEDS: MELATONIN 3 MG TAB PO PRN (20:18)
[2019-06-10] MEDS: ENOXAPARIN SODIUM 40 MG/0.4 ML SYG SUBCU SCH (20:19)
[2019-06-10] MEDS: IV SET AND CAP CHANGE INJ INJ SCH (22:12)
[2019-06-11] MEDS: PANTOPRAZOLE SODIUM IV 40 MG VIAL IV SCH (05:39)
[2019-06-11] MEDS ORDERED: cefTRIAXone SODIUM 1 GM VIAL ONE (07:21)
[2019-06-11] MEDS ORDERED: SODIUM CHL 0.9% 50ML MIN-BAG+ 50 ML IVPB ONE (07:21)
[2019-06-11] MEDS: (Atomoxetine Hcl [Strattera] 60 MG) PO SCH (07:45)
[2019-06-11] MEDS: DEXMETHYLPHENIDATE HCL 25 MG PO SCH (07:45)
[2019-06-11] MEDS: cefTRIAXone SODIUM 1 GM in SODIUM CHL 0.9% 50ML MIN-BAG+ 50 ML IVPB SCH (08:35)
[2019-06-11] MEDS: SODIUM CHLORIDE 0.9% (FLUSH) 10 ML SYG IV SCH (08:35)
[2019-06-11] MEDS: BIFIDOBACTERIUM INFANTIS 4 MG CAP PO SCH (08:35)
[2019-06-11] MEDS ORDERED: SODIUM CHLORIDE 0.9% 250ML 250 ML ONE (10:43)
[2019-06-11] MEDS ORDERED: AZITHROMYCIN IV 500 MG VIAL IVPB ONE (10:43)
[2019-06-11] MEDS: AZITHROMYCIN IV 500 MG in SODIUM CHLORIDE 0.9% 250ML 250 ML IVPB SCH (10:47)
[2019-06-11 11:17] VITALS: BP 110/73; TEMP 97.9; O2SAT 94
[2019-06-11] MEDS ORDERED: AZITHROMYCIN 250 MG TAB PO ONE (11:44)
--- NOTE | 2019-06-11 21:37 | DS ---
SUPERVISING PHYSICIAN: Paulo Burgess M.D. ADMISSION DIAGNOSIS: 1. Systemic inflammatory response system of unknown source of infection. On admission heart rate was 128, temperature 101.8, WBCs 25,000 and bands of 16%. 2. Left lower quadrant abdominal pain with nausea and vomiting and no acute findings on CT. 3. History of seizure disorder on antiseizure medication. 4. 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 5. Mild intellectual disability. DISCHARGE DIAGNOSIS: 1. Right upper lobe pneumonia, community acquired. 2. Sepsis secondary to #1, improving with treatment. 3. Left lower quadrant abdominal pain, resolved, uncertain etiology with no acute findings on CT or abdominal ultrasound. 4. History of seizure disorder on antiseizure medication including Depakote, possibly contributing to #2. 5. 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 6. Mild intellectual disability. REASON FOR HOSPITALIZATION: This is a 24 year-old male patient who has a past medical history of seizures, lives at home, who complains of left lower quadrant abdominal pain. It had been going on since Sunday night. The pain was sharp in nature, it radiates to his flank. He has also had fever and chills. He came to the Emergency Room and his initial vital signs were a temperature of 101.6 with a heart rate of 128, blood pressure 101/81, respiratory rate 20, oxygen saturation 96% on room air. Laboratory was completed and showed a white count of 25,000 with a stable hemoglobin of 15.3 and hematocrit of 46.1. He had a left shift on his differential and had 16 bands. Electrolytes were basically within normal limits with the exception of his chloride which slightly low at 97. Total bilirubin was 1.2, serum osmolality 272.7, lactic acid 1.1. Urinalysis was unremarkable with the exception of 40 urine ketones and a small amount of urine bilirubin. Blood cultures were obtained. Chest x-ray was done and showed no acute cardiopulmonary processes. CT of the abdomen and pelvis showed no evidence for an acute process within the abdomen or pelvis. He was given fluids and started on Rocephin and Flagyl. The patient was admitted in stable condition. LABORATORY STUDIES: White count on admission did show a leukocytosis of 25,000 with 16% bands. He went up to a maximum of 23% bands with a white count of 22,000 and prior to discharge was returning to baseline levels at 11,400. Hemoglobin and hematocrit were showing to be stable at 13.8 and 40.7 respectively. He did have an ESR that was elevated at 74. Chemistries were essentially unremarkable except just for a slightly elevated AST prior to discharge that was 61. He did have a low magnesium at 1.6. This was normalized with replacement to 1.9 prior to discharge. Urinalysis showed 40 of ketones, small amount of bilirubin with 2.0 urobilinogen, otherwise within normal limits. Group A Rapid Strep was negative. Influenza A and B by PCR was negative. Blood cultures remained negative after 3 days. RADIOLOGY: He had an abdominal and pelvis CT in the [facility]. [facility] prior to admission per radiology interpretation showed no evidence of acute process within the abdomen and pelvis. He had multiple x-rays through hospitalization and ultimately had a CT of the chest which did indicate that he had a developing right upper lobe and right middle lobe pneumonia. HOSPITAL COURSE: Mr. Jerome was admitted with fever of unknown origin initially and was started on Rocephin, Flagyl and vancomycin for broad spectrum empiric coverage. He did normalize his white count nicely. After further investigation and doing a CT of the chest it was found that he had actually developing right upper lobe and right middle lobe pneumonia. He was responding well to treatment and was afebrile. It was noted on CT that he had a right developing pneumonia. After this point he was switched to antibiotics to include Rocephin and azithromycin. The Flagyl and the vancomycin were discontinued. He continued to show good clinical improvement with no longer a fever. He was fever free now for 48 hours prior to discharge, was tolerating a regular diet and no longer having any abdominal pains or any further complaints. It was felt that he was stable enough to continue with outpatient management. PLAN: Mr. Jerome was discharged on 06/11/19 to the care of family members with instructions to followup with Dr. Burgess as scheduled next week. He was to continue antibiotic therapy for an additional 5 days with Cefdinir and azithromycin. He was put on Align probiotic. He was encouraged to increase his activity as tolerated and increase diet as tolerated. Should he have any worsening or concerning symptoms he is to return to the [facility] Medications on discharge included: 1. Azithromycin 500 mg daily for 3 days. 2. Align 4 mg daily for 35 days. 3. Cefdinir 300 mg twice daily for 5 days. All other medications prior to hospitalization included: 1. Depakote 120 mg twice daily. 2. Focalin XR 10 mg daily. 3. Strattera 60 mg daily. 4. Melatonin 3 mg at bedtime. PHYSICAL EXAMINATION ON DISCHARGE: VITAL SIGNS: Showed that he was stable with vital signs showing he was afebrile with temperature 97.9, pulse 88, blood pressure 110/73, respirations 16, satting 94% on room air. GENERAL: The patient is resting comfortably. Appears to be in no acute distress. CHEST: Lungs are clear to auscultation, just slightly diminished towards the bases. HEART: Regular rate and rhythm. ABDOMEN: Soft, non-tender. Positive bowel sounds. EXTREMITIES: Without edema. NEUROLOGIC: He was alert and oriented times three. DISPOSITION: The patient was discharged back to the care of family members. Condition on discharge was stable and improved. #[id number] [facility]
== END 2019-06-11 13:00 | disposition home or self-care (01) | DRG 871 ==
LOC: ER 17:42 → OBSVTOIN 21:16 → MS 21:16
PROVIDERS: ADMIT Nurse Practitioner Acute Care; ATTEND Nurse Practitioner Family
PROC: BW211ZZ Computerized Tomography (CT Scan) of Abdomen and Pelvis using Low Osmolar Contrast (ICD-10-PCS; principal; 2019-06-07)
DX: A41.9 Sepsis, unspecified organism (principal); J18.1 Lobar pneumonia, unspecified organism; R10.32 Left lower quadrant pain; R11.2 Nausea with vomiting, unspecified; E83.42 Hypomagnesemia; G40.909 Epilepsy, unspecified, not intractable, without status epilepticus; F90.9 Attention-deficit hyperactivity disorder, unspecified type; T42.6X5A Adverse effect of other antiepileptic and sedative-hypnotic drugs, initial encounter; Y92.009 Unspecified place in unspecified non-institutional (private) residence as the place of occurrence of the external cause; F70 Mild intellectual disabilities; Z79.899 Other long term (current) drug therapy

== ENCOUNTER → 2019-07-25 | Outpatient (CLI) | payer BC, OTHER ==
--- NOTE | 2019-07-25 08:36 | CT ---
EXAM DESCRIPTION: Chest w/o Contrast CLINICAL HISTORY: PNEUMONIA UNSPEC. ORGANISM COMPARISON: June 10, 2019 TECHNIQUE: Chest CT was performed without IV contrast. This exam was performed according to our departmental dose-optimization program, which includes automated exposure control, adjustment of the mA and/or kV according to patient size and/or use of iterative reconstruction technique. FINDINGS: No thoracic aortic aneurysm. Limited sensitivity for detection of adenopathy due to lack of IV contrast, but no mediastinal or hilar adenopathy is seen. No pleural or pericardial effusion. The central airways are clear. No airspace consolidation or lung mass. Patchy, nodular densities seen in the right upper and middle lobes on the previous exam have resolved. Visualized portions of the upper abdomen are unremarkable. Moderate dextroscoliosis of the mid and upper thoracic spine, stable. IMPRESSION: No pneumonia or other acute intrathoracic abnormality. Complete interval resolution of patchy, nodular consolidation in the right lung seen on the previous exam. Electronically signed by: Shahzad Kingsley MD 07/25/2019 8:34 AM [employer]
== END ==
LOC: CT 08:05
PROVIDERS: ATTEND Family Medicine
DX: J18.9 Pneumonia, unspecified organism (principal)